=== PATIENT | female | born 1975 | race Caucasian/White ===

== ENCOUNTER 2020-08-04 07:54 | Outpatient (CLI) | payer BC, SELFPAY ==
--- NOTE | 2020-08-04 07:59 | MM_ITS ---
WS: [id number] BILATERAL SCREENING MAMMOGRAM WITH CHIDI DISPLACEMENT VIEWS. CAD PERFORMED. HISTORY: SCREENING COMPARISON: 06/18/2019 Bilateral craniocaudal and mediolateral like views are performed. Chidi displacement views in CC and MLO projection also performed. Breasts composition: The breasts are heterogeneously dense, which may obscure small masses. Seen onl y on the RIGHT MLO displacement view is an asymmetry measuring 10 mm central to the nipple. Otherwise dense fibroglandular tissue. No suspicious calcifications. Implants are intact. MM/[place] [id number] IMPRESSION: BI-RADS: 0-Incomplete: Need additional imaging evaluation FOLLOW-UP: Need Additional Imaging RIGHT breast: Spot compression views ( MLO). True ML. Ultrasound to follow if a bnormality persists.
== END 2020-08-04 07:55 | disposition home or self-care (01) ==
LOC: RADSHAW 07:57
PROVIDERS: Family Provider Internal Medicine; PCP Internal Medicine; Visit Provider Nurse Practitioner Women's Health
DX: Z12.31 Encounter for screening mammogram for malignant neoplasm of breast (principal); N64.89 Other specified disorders of breast
CPT/HCPCS: 77067

== ENCOUNTER 2020-08-24 09:16 | Outpatient (CLI) | payer BC, SELFPAY ==
--- NOTE | 2020-08-24 09:30 | MM_ITS ---
WS: [id number] ADDITIONAL VIEWS RIGHT BREAST HISTORY: N64.89 - Other specified disorders of breast COMPARISON: 08/04/2020, 06/18/2019 and 05/02/2017. Compression views right CC and MLO projection. True ML also submitted. Asymmetry posterior to the nipple on the MLO projection resolves with additional imaging. No residual suspicious asymmetry. MM/[place] [id number] IMPRESSION: BI-RADS: 2-Benign FOLLOW-UP: 1 Year Follow-up
== END 2020-08-24 09:17 | disposition home or self-care (01) ==
LOC: RADSHAW 09:20
PROVIDERS: Family Provider Internal Medicine; PCP Internal Medicine; Visit Provider Nurse Practitioner Women's Health
DX: N64.89 Other specified disorders of breast (principal)
CPT/HCPCS: 77065

== ENCOUNTER → 2021-03-23 09:00 | Outpatient (BNVA) | payer BC, SELFPAY | PROVIDERS: Family Provider Internal Medicine; PCP Internal Medicine; Visit Provider Nurse Practitioner Women's Health | DX: Z01.419 Encounter for gynecological examination (general) (routine) without abnormal findings (principal); N92.0 Excessive and frequent menstruation with regular cycle; B37.9 Candidiasis, unspecified | CPT/HCPCS: 88175 ==

== ENCOUNTER 2021-08-26 07:52 | Outpatient (CLI) | payer OTHER, SELFPAY ==
--- NOTE | 2021-08-26 07:56 | MM_ITS ---
WS: [id number] BILATERAL DIGITAL SCREENING MAMMOGRAPHY WITH CAD CLINICAL INFORMATION: SCREENING HISTORY: Screening mammogram. No current complaints. COMPARISON: August 04, 2020 TECHNIQUE: Bilateral CC and MLO views. FINDINGS: Prior postoperative changes subpectoral bilateral breast implants are intact. The breasts are composed of heterogeneous fibroglandular density tissue, which can limit the detectio n of small underlying mass lesions. Ovoid nodular density measuring 17 mm upper quadrant LEFT breast may represent a breast cyst in a patient this age but appears enlarged and better seen compared to pr evious. Recommend further evaluation with spot compression views and ultrasound. RIGHT breast is unremarkable and unchanged. MM/[place] [id number] IMPRESSION: BI-RADS: 0-Incomplete: Need additional imaging evaluation FOLLOW UP: Need Additional Imaging Recommend LEFT breast diagnostic mammography and ultrasound.
== END 2021-08-26 07:53 | disposition home or self-care (01) ==
LOC: RADSHAW 07:53
PROVIDERS: Family Provider Internal Medicine; PCP Internal Medicine; Visit Provider Nurse Practitioner Women's Health
DX: Z12.31 Encounter for screening mammogram for malignant neoplasm of breast (principal)
CPT/HCPCS: 77067

== ENCOUNTER 2021-09-05 12:41 | Outpatient (CLI) | payer OTHER, SELFPAY ==
--- NOTE | 2021-09-05 13:30 | US_ITS ---
WS: [id number] LEFT DIGITAL MAMMOGRAPHY WITH CAD CLINICAL INFORMATION: R92.8 - Other abnormal and inconclusive findings on diagn... COMPARISON: August 04, 2020 and August 26, 2021 TECHNIQUE: 3 views of the left breast were obtaine d. FINDINGS: Scattered fibroglandular densities of the left breast. Ovoid density upper quadrant LEFT breast is un changed. Ultrasound is pending. ULTRASOUND BREAST LEFT TECHNIQUE: Ultrasound left breast focused area of concern. CLINICAL INFORMATION: R92.8 - Other abnormal and inconclusive findings on diagn... FINDINGS: Subpectoral LEFT breast implant. Ultrasound LEFT breast at the 1:00 position 1 cm from the nipple. Simple cyst is visualized in this a mani measuring 1.2 x 1.3 x 1.0 cm. No suspicious parenchymal abnormalities. No lesions to target for b iopsy. US/US breast LT limited* [id number] IMPRESSION: BI-RADS: 2-Benign FOLLOW UP: 1 Year Follow-up Recommend return to annual screening mammography.
== END 2021-09-05 12:42 | disposition home or self-care (01) ==
LOC: RADSHAW 12:45
PROVIDERS: PCP Internal Medicine; Visit Provider Nurse Practitioner Women's Health
DX: R92.8 Other abnormal and inconclusive findings on diagnostic imaging of breast (principal)
CPT/HCPCS: 76642; 77065

== ENCOUNTER 2022-09-08 08:04 | Outpatient (CLI) | payer OTHER, SELFPAY ==
--- NOTE | 2022-09-08 08:15 | MM_ITS ---
WS: [id number] BILATERAL SCREENING DIGITAL BREAST MAMMOGRAPHY WITH CHIDI DISPLACEMENT VIEWS. CAD PERFORMED. HISTORY: SCREENING COMPARISON: 09/05/2021, 08/26/2021 and 05/17/2018 Bilateral craniocaudal and mediolateral oblique views are performed with tomosynthesis and SM. Chidi displacement views in CC and MLO projection also performed. Breasts composition: The breasts are heterogeneously dense, which may obscure small masses. Implants are intact. No capsular contraction or extravasation. No suspicious masses or calcifications . MM/[place] [id number] IMPRESSION: BI-RADS: 2-Benign FOLLOW-UP: 1 Year Follow-up
== END 2022-09-08 08:05 | disposition home or self-care (01) ==
PROVIDERS: PCP Internal Medicine; Visit Provider Internal Medicine
DX: Z12.31 Encounter for screening mammogram for malignant neoplasm of breast (principal)
CPT/HCPCS: 77063; 77067

== ENCOUNTER 2023-09-10 07:43 | Outpatient (CLI) | payer OTHER, SELFPAY ==
--- NOTE | 2023-09-10 07:48 | MM_ITS ---
WS: [id number] .. BILATERAL SCREENING DIGITAL BREAST MAMMOGRAPHY WITH CHIDI DISPLACEMENT VIEWS. CAD PERFORMED. HISTORY: SCREENING COMPARISON: 09/08/2022, 08/04/2020 Bilateral craniocaudal and mediolateral oblique views are performed with tomosynthesis and SM. Chidi displacement views in CC and MLO projection also performed. Breasts composition: The breasts are heterogeneously dense, which may obscure small masses. No suspicious masses or calcifications. No distortion. Retropectoral implants are intact. IMPRESSION: MM/[place] [id number] BI-RADS: 2-Benign FOLLOW-UP: 1 Year Follow-up
== END 2023-09-10 07:44 | disposition home or self-care (01) ==
LOC: RAD 07:43
PROVIDERS: PCP Internal Medicine; Visit Provider Family Medicine
DX: Z12.31 Encounter for screening mammogram for malignant neoplasm of breast (principal); R92.333 Mammographic heterogeneous density, bilateral breasts
CPT/HCPCS: 77063; 77067

== ENCOUNTER 2024-09-12 08:11 | Outpatient (CLI) | payer OTHER, SELFPAY ==
--- NOTE | 2024-09-12 08:14 | MM_ITS ---
WS: [id number] BILATERAL SCREENING DIGITAL BREAST MAMMOGRAPHY WITH CHIDI DISPLACEMENT VIEWS. CAD PERFORMED. HISTORY: SCREENING COMPARISON: 09/10/2023, 09/08/2022, 08/26/2021 Bilateral craniocaudal and mediolateral oblique views are performed with tomosynthesis and SM. Chidi displacement views in CC and MLO projection also performed. Breasts composition: The breasts are extremely dense, which lowers the sensitivity of mammography. Implants are intact. No capsular contraction or collapse of either implant. No suspicious masses or calcifications. Asymmetries are stable. MM/MM scr tomosynthesis [id number] IMPRESSION: BI-RADS: 2 - Benign FOLLOW-UP: 1 Month Follow-up
== END 2024-09-12 08:12 | disposition home or self-care (01) ==
PROVIDERS: PCP Internal Medicine; Visit Provider Family Medicine
DX: Z12.31 Encounter for screening mammogram for malignant neoplasm of breast (principal); R92.343 Mammographic extreme density, bilateral breasts; Z98.82 Breast implant status; N64.89 Other specified disorders of breast
CPT/HCPCS: 77063; 77067